=== PATIENT | female | born 1960 | race American Indian/Alaskan Native ===

== ENCOUNTER 2017-07-29 11:17 | Outpatient (CLI) | payer BC ==
--- NOTE | 2017-07-30 13:19 | Mammography Report ---
BILATERAL DIGITAL SCREENING MAMMOGRAM with CAD: 07/29/17 11:17:00 CLINICAL: Routine screening. COMPARISON:12/18/15 and 12/14/13 FINDINGS: The breasts are heterogeneously dense, which may obscure small masses. There has been some fatty involution since the last exam. Bilateral parenchymal asymmetries require additional imaging.No architectural distortion or suspicious calcifications. IMPRESSION: Bilateral asymmetries requiring further workup. BI-RADS CATEGORY: 0 -- Additional Imaging Evaluation Required RECOMMENDATION: Recall for bilateral , spot compression and bilateral breast ultrasound if needed. ACR BI-RADS MAMMOGRAPHIC CODES: 0 = Needs additional imaging evaluation; 1 = Negative; 2 = Benign; 3 = Probably benign; 4 = Suspicious; 5 = Malignant; 6 = Known biopsy-proven malignancy COMMENT: 1. Dense breast tissue, i.e., adenosis, fibrocystic changes, etc., may obscure an underlying neoplasm. 2. Approximately 10% of cancers are not detected with mammography. 3. A negative mammography report should not delay biopsy if a clinically suspicious mass is present. COMMENT: Patient follow-up letters are generated via our [employer] application.
== END 2017-07-29 11:18 | disposition home or self-care (01) ==
LOC: MAMMO 11:17
PROVIDERS: ATTEND Nurse Practitioner Family
DX: Z12.31 Encounter for screening mammogram for malignant neoplasm of breast (principal)
CPT/HCPCS: 77067

== ENCOUNTER 2017-08-10 10:58 | Outpatient (CLI) | payer BC ==
--- NOTE | 2017-08-10 13:41 | Cat Scan Report ---
FINAL REPORT EXAM: CT HEAD/BRAIN WO CON HISTORY: HEADACHE DISORDER COMPARISON: None. TECHNIQUE: Multiple contiguous axial images were obtained from the skullbase to the vertex without administration of IV contrast. FINDINGS: There is no parenchymal hemorrhage. There is no extra-axial fluid collection. There is no mass or mass effect. There is metallic artifact in the right temporal fossa, which may be due to embolization coils. There is no acute territorial infarct. The ventricles are midline. The subarachnoid spaces and basilar cisterns are clear. There is no skull fracture. The paranasal sinuses and mastoid air cells are clear. The bilateral orbits are intact. IMPRESSION: No acute intracranial abnormality. Metallic artifact within the right temporal fossa, likely due to embolic coils. Recommend clinical correlation.
== END 2017-08-10 10:59 | disposition home or self-care (01) ==
LOC: CT 10:58
PROVIDERS: ATTEND Nurse Practitioner Family
DX: R51 Headache (principal)
CPT/HCPCS: 70450

== ENCOUNTER 2018-07-30 14:50 | Outpatient (CLI) | payer BC ==
--- NOTE | 2018-07-30 16:31 | Mammography Report ---
BILATERAL DIGITAL SCREENING MAMMOGRAM with CAD: 07/30/18 14:50:00 CLINICAL: Routine screening. COMPARISON:07/29/17 FINDINGS: The breasts are heterogeneously dense, which may obscure small masses. No mass, architectural distortion or suspicious calcifications. IMPRESSION: No mammographic evidence of malignancy. BI-RADS CATEGORY: 1 - - Negative RECOMMENDATION: Routine mammographic screening in one year. COMMENT: Patient follow-up letters are generated by our [employer] application.
== END 2018-07-30 14:51 | disposition home or self-care (01) ==
LOC: MAMMO 14:50
PROVIDERS: ATTEND Nurse Practitioner Family
DX: Z12.31 Encounter for screening mammogram for malignant neoplasm of breast (principal); I10 Essential (primary) hypertension
CPT/HCPCS: 77067

== ENCOUNTER 2019-09-05 07:08 | Outpatient (CLI) | payer BC ==
--- NOTE | 2019-09-05 08:41 | Mammography Report ---
DIGITAL SCREENING MAMMOGRAM WITH CAD, 09/05/2019 INDICATION: Routine screening mammography. TECHNIQUE: Digital bilateral 2D mammography was obtained in the craniocaudal and mediolateral obliq ue projections. This examination was interpreted with the benefit of Computer-Aided Detection analysi s. COMPARISON: 05/01/2018, 07/29/2017 FINDINGS: Breast Density: The breasts are heterogeneously dense, which may obscure small masses. There is no evidence of dominant mass, suspicious calcifications or architectural distortion in eithe r breast. No interval change. IMPRESSION: No evidence of malignancy. Follow up recommendation: Routine yearly BI-RADS Category 1: Negative. A "normal" or negative report should not discourage follow up or biopsy of a clinically significant f inding. A written summary of these findings will be mailed to the patient. The patient will be entered into a mammography reporting system which will generate a reminder letter for the patient's next appointmen t at the appropriate interval. The [employer] recommends yearly mammograms starting at age 40 and continuing as l finn as a woman is in good health. Breast MRI is recommended for women with an approximate 20-25% or greater lifetime risk of breast cancer, including women with a strong family history of breast or ova nancy cancer or who have been treated for Hodgkin's disease. Signer Name: Mayuri Hernandez MD Signed: 09/05/2019 8:37 AM Workstation Name: [id number]
== END 2019-09-05 07:09 | disposition home or self-care (01) ==
LOC: MAMMO 07:08
PROVIDERS: ATTEND Internal Medicine
DX: Z12.31 Encounter for screening mammogram for malignant neoplasm of breast (principal)
CPT/HCPCS: 77067

== ENCOUNTER 2020-09-05 15:29 | Outpatient (CLI) | payer BC | END 2020-09-05 15:30 | disposition home or self-care (01) | LOC: MAMMO 15:29 | DX: Z12.31 Encounter for screening mammogram for malignant neoplasm of breast (principal) ==